=== PATIENT | male | born 1955 | race Caucasian/White ===

== ENCOUNTER 2017-09-22 19:23 | Inpatient (IN) | END 2017-09-24 16:00 | disposition home or self-care (01) | DRG 312 ==

== ENCOUNTER 2017-09-30 04:18 | Inpatient (IN) | END 2017-10-01 16:08 | disposition home or self-care (01) | DRG 682 ==

== ENCOUNTER 2017-10-04 18:37 | Emergency (ER) | END 2017-10-04 20:40 | disposition home or self-care (01) ==